=== PATIENT | female | born 1980 | race Caucasian/White ===

== ENCOUNTER 2016-12-18 19:39 | Emergency (ER) | payer BC ==
[~2016-12-18] VITALS: Ht 233.6 cm; Wt 130.6 kg
[~2016-12-18 19:39] MED LIST: ANAPROX DS550 MG PO; AUGMENTIN 875 M1 TA1 PO; AUGMENTIN 875875 MG PO; CLARITIN10 MG PO; CORDROL20 MG PO; DONNATAL1 TAB PO; FIORICET 325 MG1 TAB PO; FLEXERIL10 MG PO; FLEXERIL5 MG PO; FLONASE 0.05% 121 EA NAS; MOTRIN600 MG PO; NASONEX0.05 MG/AC NS; OMNICEF300 MG PO; PRILOSEC40 MG PO; VICODIN 5/500 505 MG PO; ZITHROMAX Z PA250 MG PO; ZITHROMAX250 MG PO; ZYRTEC10 MG PO
[2016-12-18] MEDS ORDERED: TYLENOL325 M2 PO (19:49)
[2016-12-18] MEDS ORDERED: AUGMENTIN125 MG/5 M PO (19:49)
[2016-12-18] MEDS ORDERED: MOTRIN IB200 M1 PO (19:49)
[2016-12-18 20:44] LABS: HEMATOCRIT 37.2 % (37.0-47.0); HEMOGLOBIN 12.6 g/dl (12.0-16.0); MEAN CELL VOLUME 87.5 fl (81.0-99.0); MEAN CORPUSCULAR HGB 29.6 pg (27.0-31.0); MEAN CORPUSCULAR HGB CONC 33.9 g/dl (33.0-37.0); MEAN PLATELET VOLUME 10.6 fl (9.6-12.3); PLATELET COUNT AUTOMATED 149 10*3/uL (130-400); RED BLOOD COUNT 4.25 10*6/uL (4.10-5.10); RED CELL DISTRI WIDTH 13.5 % (0-14.5); WHITE BLOOD COUNT 4.8 10*3/uL (4.8-10.8)
[2016-12-18 20:59] LABS: ALBUMIN 3.5 gm/dl (3.1-4.5); ALKALINE PHOSPHATASE 64 U/L (45-117); BILIRUBIN, TOTAL 0.4 mg/dl (0.2-1.0); BUN 5 mg/dl (7-24); C-REACTIVE PROTEIN 6.65 MG/DL (0-0.3); CARBON DIOXIDE 23 mmol/L (21-32); CHLORIDE 103 mmol/L (98-107); EST GLOM FILT AFRICAN AMERICAN > 60 ml/min; GLUCOSE 120 mg/dL (65-99); POTASSIUM 3.5 mmol/L (3.5-5.1); SGOT/AST 52 IU/L (3-35); SGPT/ALT 60 U/L (12-78); SODIUM 137 mmol/L (136-145); TOTAL PROTEIN 7.3 gm/dL (6.4-8.2)
[2016-12-18 21:09] LABS: ATYPICAL LYMPHS 3 % (0-0); LYMPHOCYTE # 1.6 10*3/uL (1.3-4.4); MONOCYTE # 0.3 10*3/uL (0.1-1.0); NEUTROPHIL # 2.9 10*3/uL (2.3-7.9); NEUTROPHILS 60 % (47-73); PLATELET SUFFICIENCY NORMAL (NORMAL); POLYCHROMASIA SLIGHT; TEAR DROP CELLS FEW; TOTAL CELLS COUNTED 100 #CELLS
[2016-12-18] MEDS ORDERED: MEDROL DOSEPAK4 MG PO (22:22)
== END 2016-12-18 22:28 | disposition home or self-care (01) ==
LOC: ED 19:39
PROVIDERS: Physician Assistant
DX: J01.90 Acute sinusitis, unspecified (principal); R51 Headache; Z79.899 Other long term (current) drug therapy

== ENCOUNTER 2017-05-05 21:04 | Emergency (ER) | payer BC ==
[~2017-05-05] VITALS: Ht 160 cm; Wt 124.7 kg
[~2017-05-05 21:04] MED LIST changes: +AUGMENTIN125 MG/5 M PO; +MEDROL DOSEPAK4 MG PO; +MOTRIN IB200 M1 PO; +TYLENOL325 M2 PO
[2017-05-05] MEDS ORDERED: BACTRIM DS PO (21:39)
[2017-05-05] MEDS ORDERED: CEPHALEXIN500 M1 PO (21:39)
== END 2017-05-05 21:42 | disposition home or self-care (01) ==
LOC: ED 21:04
DX: L08.89 Other specified local infections of the skin and subcutaneous tissue (principal); Z79.899 Other long term (current) drug therapy

== ENCOUNTER 2017-08-01 21:04 | Emergency (ER) | payer BC ==
[~2017-08-01] VITALS: Ht 172.7 cm; Wt 90.7 kg
[~2017-08-01 21:04] MED LIST changes: +BACTRIM DS PO; +CEPHALEXIN500 M1 PO
== END 2017-08-01 21:29 | disposition home or self-care (01) ==
LOC: ED 21:04
DX: Z20.811 Contact with and (suspected) exposure to meningococcus (principal); Z79.899 Other long term (current) drug therapy

== ENCOUNTER 2018-02-08 18:56 | Emergency (ER) | payer BC ==
[~2018-02-08] VITALS: Ht 157.4 cm; Wt 124.7 kg
[2018-02-08] MEDS ORDERED: Peridex 473 ML473 ML PO (19:02)
[2018-02-08] MEDS ORDERED: NAPROSYN500 MG PO (19:02)
[2018-02-08] MEDS ORDERED: PENICILLIN VK500 MG PO (19:02)
[2018-02-08] MEDS ORDERED: ZOFRAN4 MG PO (19:02)
== END 2018-02-08 19:06 | disposition home or self-care (01) ==
LOC: ED 18:56
DX: K02.9 Dental caries, unspecified (principal); R03.0 Elevated blood-pressure reading, without diagnosis of hypertension; Z79.899 Other long term (current) drug therapy

== ENCOUNTER 2018-07-13 21:06 | Emergency (ER) | payer BC ==
[~2018-07-13] VITALS: Wt 124.7 kg
[~2018-07-13 21:06] MED LIST changes: +NAPROSYN500 MG PO; +PENICILLIN VK500 MG PO; +Peridex 473 ML473 ML PO; +ZOFRAN4 MG PO
[2018-07-13] MEDS ORDERED: ANAPROX DS550 MG PO (23:11)
== END 2018-07-14 00:14 | disposition home or self-care (01) ==
LOC: ED 21:06
DX: R07.81 Pleurodynia (principal); R06.7 Sneezing; R05 Cough

== ENCOUNTER 2018-11-21 21:14 | Emergency (ER) | payer BC ==
[~2018-11-21] VITALS: Ht 160 cm; Wt 124.7 kg
[2018-11-21] MEDS ORDERED: TOBRAMYCIN 5 ML5 M1 OPH (21:48)
[2018-11-21] MEDS ORDERED: ZYRTEC10 MG PO (21:48)
== END 2018-11-21 21:49 | disposition home or self-care (01) ==
LOC: ED 21:14
DX: H10.11 Acute atopic conjunctivitis, right eye (principal); H00.012 Hordeolum externum right lower eyelid; Z79.899 Other long term (current) drug therapy

== ENCOUNTER 2021-03-30 18:08 | Emergency (ER) | payer SELFPAY ==
[~2021-03-30 18:08] MED LIST changes: +TOBRAMYCIN 5 ML5 M1 OPH
[2021-03-30] MEDS ORDERED: SEPTDS PO (19:02)
== END 2021-03-30 19:14 | disposition home or self-care (01) ==
LOC: ED 18:08
DX: J32.8 Other chronic sinusitis (principal); Z79.899 Other long term (current) drug therapy

== ENCOUNTER 2021-09-05 15:43 | Emergency (ER) | payer SELFPAY ==
[~2021-09-05] VITALS: Ht 160 cm; Wt 124.7 kg
[~2021-09-05 15:43] MED LIST changes: +SEPTDS PO
[2021-09-05] MEDS ORDERED: ZITHROMAX250 MG PO (18:30)
== END 2021-09-05 18:36 | disposition home or self-care (01) ==
LOC: ED 15:43
DX: J06.9 Acute upper respiratory infection, unspecified (principal); Z20.822 Contact with and (suspected) exposure to COVID-19

== ENCOUNTER 2022-03-20 18:35 | Emergency (ER) | payer OTHER ==
[~2022-03-20] VITALS: Ht 160 cm; Wt 124.7 kg
[2022-03-20] MEDS ORDERED: METHOCARBAMOL500 M1 PO (21:11)
[2022-03-20] MEDS ORDERED: NAPROXEN250 MG PO (21:11)
== END 2022-03-20 21:22 | disposition home or self-care (01) ==
LOC: ED 18:35
DX: M25.511 Pain in right shoulder (principal); X50.1XXA Overexertion from prolonged static or awkward postures, initial encounter; Y93.89 Activity, other specified; Y92.89 Other specified places as the place of occurrence of the external cause; Y99.9 Unspecified external cause status

== ENCOUNTER 2022-04-09 21:20 | Emergency (ER) | payer OTHER ==
[~2022-04-09 21:20] MED LIST changes: +METHOCARBAMOL500 M1 PO; +NAPROXEN250 MG PO
[2022-04-09] MEDS ORDERED: Percocet 325 MG1 TAB PO (22:02)
[2022-04-09] MEDS ORDERED: VIBRA-TAB100 MG PO (22:02)
== END 2022-04-09 22:00 | disposition home or self-care (01) ==
LOC: ED 21:20
DX: L73.2 Hidradenitis suppurativa (principal)

== ENCOUNTER 2022-09-06 17:25 | Emergency (ER) | payer OTHER ==
[~2022-09-06] VITALS: Ht 157.4 cm; Wt 127.0 kg
[~2022-09-06 17:25] MED LIST changes: +Percocet 325 MG1 TAB PO; +VIBRA-TAB100 MG PO
[2022-09-06] MEDS ORDERED: MUCINEX D ER 61 EACH PO (22:11)
[2022-09-06] MEDS ORDERED: VIBRAMYCIN100 MG PO (22:11)
[2022-09-06] MEDS ORDERED: MUCINEX DM 30/61 TAB PO (22:14)
== END 2022-09-06 22:43 | disposition home or self-care (01) ==
LOC: ED 17:25
DX: J34.0 Abscess, furuncle and carbuncle of nose (principal); Z20.822 Contact with and (suspected) exposure to COVID-19; J01.00 Acute maxillary sinusitis, unspecified; J06.9 Acute upper respiratory infection, unspecified

== ENCOUNTER 2023-08-16 07:31 | Emergency (ER) | payer OTHER ==
[~2023-08-16] VITALS: Wt 127.0 kg
[~2023-08-16 07:31] MED LIST changes: +MUCINEX D ER 61 EACH PO; +MUCINEX DM 30/61 TAB PO; +VIBRAMYCIN100 MG PO
[2023-08-16] MEDS ORDERED: AVPAK AZITHROM250 M1 PO (08:51)
== END 2023-08-16 09:04 | disposition home or self-care (01) ==
LOC: ED 07:31
DX: J32.9 Chronic sinusitis, unspecified (principal); J04.0 Acute laryngitis; Z90.89 Acquired absence of other organs; Z98.890 Other specified postprocedural states; F17.290 Nicotine dependence, other tobacco product, uncomplicated

== ENCOUNTER 2023-11-06 17:32 | Emergency (ER) | payer OTHER ==
[~2023-11-06] VITALS: Ht 160 cm; Wt 127.0 kg
[~2023-11-06 17:32] MED LIST changes: +AVPAK AZITHROM250 M1 PO
[2023-11-06] MEDS ORDERED: Ketorolac Tromethamine 30 MG/ML VIAL IM ONE (18:00)
[2023-11-06] MEDS ORDERED: MEDROL DOSEPAK4 MG PO (19:02)
== END 2023-11-06 19:29 | disposition home or self-care (01) ==
LOC: ED 17:32
DX: J02.8 Acute pharyngitis due to other specified organisms (principal); Z20.822 Contact with and (suspected) exposure to COVID-19; Z90.89 Acquired absence of other organs; Z90.49 Acquired absence of other specified parts of digestive tract

== ENCOUNTER 2025-06-05 19:57 | Emergency (ER) | payer SELFPAY ==
[~2025-06-05] VITALS: Ht 160 cm; Wt 123.5 kg
[2025-06-05] MEDS ORDERED: AMOX-CLAV 875-1 EACH PO (21:03)
== END 2025-06-05 21:43 | disposition home or self-care (01) ==
LOC: ED 19:57
DX: J01.90 Acute sinusitis, unspecified (principal); K12.0 Recurrent oral aphthae; Z79.899 Other long term (current) drug therapy